=== PATIENT | female | born 1975 | race Hispanic/Latino ===

== ENCOUNTER 2023-02-18 14:20 | Emergency (ER) | payer SELFPAY ==
[~2023-02-18] VITALS: Ht 167.6 cm; Wt 77.1 kg
[2023-02-18 14:40] VITALS: O2SAT 99
[2023-02-18] MEDS ORDERED: ONDANSETRON HCL INJ 2MG/ML 2ML 2 MG/ML VIAL IV STA (14:44)
[2023-02-18] MEDS ORDERED: Morphine 4mg INJECTION 4 MG/ML INJ IV PRN (14:45)
[2023-02-18 15:11] LABS: BASOPHILS % 0.7 % (0.0-1.0); EOSINOPHILS # (AUTO) 0.1 (0.0-0.4); EOSINOPHILS % 2.5 % (0.0-6.0); HEMATOCRIT 36.8 % (34.2-44.1); LYMPHOCYTES # (AUTO) 1.6 (1.0-3.2); LYMPHOCYTES % 27.7 % (18.0-39.1); MEAN CORPUSCULAR HEMOGLOBIN 28.6 pg (28-32); MEAN CORPUSCULAR HGB CONC 32.6 g/dL (31-35); MEAN CORPUSCULAR VOLUME 87.6 fL (81-99); MONOCYTES # (AUTO) 0.5 (0.2-0.8); MONOCYTES % 9.3 % (4.4-11.3); NEUTROPHILS # (AUTO) 3.4 (2.1-6.9); NEUTROPHILS % 59.4 % (38.7-80.0); PLATELET COUNT 312 x10e3/uL (140-360); RED CELL DISTRIBUTION WIDTH 14.3 % (11.7-14.4)
[2023-02-18 15:23] LABS: CLARITY,URINE SL CLOUDY (CLEAR); COLOR,URINE AMBER (YELLOW); KETONES,URINE NEGATIVE (NEGATIVE); LEUKOCYTE ESTERASE ,URINE NEGATIVE (NEGATIVE); NITRITE,URINE POSITIVE (NEGATIVE); PROTEIN,URINE DIPSTICK 1+ (NEGATIVE); URINE UROBILINOGEN 0.2 mg/dL (0.2 - 1)
[2023-02-18 15:25] LABS: ALBUMIN 3.8 g/dL (3.5-5.0); ALBUMIN/GLOBULIN RATIO 1.2 (0.8-2.0); ANION GAP 11.4 mmol/L (8-16); CALCIUM 8.8 mg/dL (8.4-10.2); CREATININE, SERUM 0.87 mg/dL (0.57-1.11); POTASSIUM 3.4 mmol/L (3.5-5.1)
[2023-02-18 15:37] LABS: BACTERIA,URINE MANY /HPF; EPITHELIAL CELLS,URINE MODERATE /LPF
[2023-02-18 15:40] LABS: LIPASE 29 U/L (8-78)
[2023-02-18] MEDS ORDERED: IOPAMIDOL 370 MG/ML 100 ML INFUS..BTL INJ ONE (16:03)
[2023-02-18] MEDS ORDERED: CEFDINIR300 MG PO (16:46)
[2023-02-18] MEDS ORDERED: DICYCLOMINE HCL20 MG PO (16:46)
[2023-02-18] MEDS ORDERED: PEPCID20 MG PO (16:46)
[2023-02-18] MEDS ORDERED: ONDANSETRON ODT4 MG PO (16:46)
== END 2023-02-18 17:03 | disposition home or self-care (01) ==
LOC: ER 14:25
DX: R10.31 Right lower quadrant pain (principal); N12 Tubulo-interstitial nephritis, not specified as acute or chronic; K29.70 Gastritis, unspecified, without bleeding; R11.2 Nausea with vomiting, unspecified; R94.31 Abnormal electrocardiogram [ECG] [EKG]
CPT/HCPCS: 36415; 74177; 80053; 81001; 83690; 84484; 84702; 85025; 93005; 99284; J2270; J2405; Q9967

== ENCOUNTER 2023-02-21 00:17 | Emergency (ER) | payer SELFPAY ==
[~2023-02-21] VITALS: Ht 167.6 cm; Wt 77.1 kg
[~2023-02-21 00:17] MED LIST: CEFDINIR300 MG PO; DICYCLOMINE HCL20 MG PO; ONDANSETRON ODT4 MG PO; PEPCID20 MG PO
[2023-02-21] MEDS ORDERED: ONDANSETRON HCL 4 MG ORAL DISINTEGRATING TAB PO STA (00:32)
[2023-02-21] MEDS ORDERED: KETOROLAC TROMETHAMINE 60 MG/2 ML VIAL IM ONE (00:45)
[2023-02-21 00:59] LABS: CLARITY,URINE CLOUDY (CLEAR); COLOR,URINE YELLOW (YELLOW); LEUKOCYTE ESTERASE ,URINE NEGATIVE (NEGATIVE); NITRITE,URINE NEGATIVE (NEGATIVE)
[2023-02-21 01:00] LABS: KETONES,URINE NEGATIVE (NEGATIVE); PROTEIN,URINE DIPSTICK TRACE (NEGATIVE); URINE UROBILINOGEN 0.2 mg/dL (0.2 - 1)
[2023-02-21 01:13] LABS: BACTERIA,URINE MANY /HPF; EPITHELIAL CELLS,URINE MANY /LPF; MUCUS,URINE MANY (RARE); RENAL EPITHELIAL CELLS,URINE FEW; TRANSITIONAL EPI CELLS,URINE FEW; WBC,URINE (MAN) >50 /HPF (0-5)
[2023-02-21] MEDS ORDERED: CIPRO500 MG PO (04:05)
[2023-02-21] MEDS ORDERED: KETOROLAC TROME10 MG PO (04:05)
[2023-02-21 04:19] VITALS: BP 105/74; O2SAT 98
== END 2023-02-21 04:21 | disposition home or self-care (01) ==
LOC: ER 00:27
DX: R10.31 Right lower quadrant pain (principal); R82.71 Bacteriuria; R11.2 Nausea with vomiting, unspecified
CPT/HCPCS: 74176; 81001; 81025; 99284; J1885; Q0162

== ENCOUNTER 2024-07-11 18:08 | Emergency (ER) | payer OTHER ==
[~2024-07-11] VITALS: Ht 167.6 cm; Wt 83.3 kg
[~2024-07-11 18:08] MED LIST changes: +CIPRO500 MG PO; +KETOROLAC TROME10 MG PO; +ONDANSETRON ODT4 MG SL; +PANTOPRAZOLE SO40 MG PO
[2024-07-11 18:17] VITALS: PULSE 93; RESP 18; TEMP 98.4
[2024-07-11] MEDS ORDERED: PROVERA10 MG PO (18:39)
[2024-07-11 20:20] VITALS: BP 134/79; PULSE 81; RESP 18; TEMP 98.1; O2SAT 98
== END 2024-07-11 20:22 | disposition home or self-care (01) ==
LOC: FSED 18:16
DX: N93.8 Other specified abnormal uterine and vaginal bleeding (principal); K21.9 Gastro-esophageal reflux disease without esophagitis
CPT/HCPCS: 80053; 81025; 85025; 99283

== ENCOUNTER 2024-07-24 22:08 | Emergency (ER) | payer OTHER ==
[~2024-07-24] VITALS: Ht 167.6 cm; Wt 83.0 kg
[~2024-07-24 22:08] MED LIST changes: +PROVERA10 MG PO
[2024-07-24] MEDS: TRAMADOL HCL 50 MG TAB PO ONE (23:11)
[2024-07-24] MEDS ORDERED: ONDANSETRON HCL 4 MG ORAL DISINTEGRATING TAB ONE (23:14)
[2024-07-24 23:45] VITALS: PULSE 69; RESP 18; TEMP 98.6
[2024-07-25] MEDS: ONDANSETRON HCL 4 MG ORAL DISINTEGRATING TAB PO ONE (00:26)
[2024-07-25] MEDS: KETOROLAC TROMETHAMINE 30 MG/ML VIAL IM STA (02:46)
[2024-07-25] MEDS ORDERED: KETOROLAC TROME10 MG PO (03:14)
[2024-07-25] MEDS ORDERED: FAMOTIDINE20 MG PO (03:15)
[2024-07-25] MEDS ORDERED: PREDNISONE20 MG PO (03:16)
[2024-07-25] MEDS ORDERED: CYCLOBENZAPRINE5 MG PO (03:16)
[2024-07-25 04:11] VITALS: BP 141/74; PULSE 73; RESP 16; TEMP 98.3; O2SAT 98
== END 2024-07-25 03:45 | disposition home or self-care (01) ==
LOC: FSED 22:19
DX: M79.601 Pain in right arm (principal); S46.811A Strain of other muscles, fascia and tendons at shoulder and upper arm level, right arm, initial encounter; M79.2 Neuralgia and neuritis, unspecified; R94.31 Abnormal electrocardiogram [ECG] [EKG]
CPT/HCPCS: 71046; 72125; 73030; 84484; 93005; 93971; 99284; J1885; Q0162

== ENCOUNTER 2024-12-05 18:02 | Inpatient (IN) | payer OTHER ==
[~2024-12-05] VITALS: Ht 167.6 cm; Wt 79.8 kg
[~2024-12-05 18:02] MED LIST changes: +CYCLOBENZAPRINE5 MG PO; +FAMOTIDINE20 MG PO; +PREDNISONE20 MG PO
[2024-12-05] MEDS: ONDANSETRON HCL INJ 2MG/ML 2ML 2 MG/ML VIAL IV STA (19:28)
[2024-12-05] MEDS: Morphine 4mg INJECTION 4 MG/ML INJ IV ONE (19:28)
[2024-12-05] MEDS: KETOROLAC TROMETHAMINE 30 MG/ML VIAL IV STA (21:52)
[2024-12-05 21:53] VITALS: PULSE 80; RESP 20; TEMP 98
[2024-12-05 23:10] VITALS: BP 125/71; PULSE 76; RESP 18; TEMP 98.3; O2SAT 100
[2024-12-05] MEDS: ONDANSETRON HCL INJ 2MG/ML 2ML 2 MG/ML VIAL IV PRN (23:41)
[2024-12-05] MEDS: Morphine 4mg INJECTION 4 MG/ML INJ IV PRN (23:41)
[2024-12-06] VITALS (8 sets, daily range): BP systolic 120–143; BP diastolic 68–97; PULSE 62–72; RESP 16–18; TEMP 97.7–98.7; O2SAT 98–100
[2024-12-06] MEDS ORDERED: LIDOCAINE 4% PATCH TP PRN (00:45)
[2024-12-06] MEDS ORDERED: MELATONIN 5 MG TABLET PO PRN (00:45)
[2024-12-06] MEDS ORDERED: HYDRALAZINE HCL 20 MG/ML VIAL IV PRN (00:45)
[2024-12-06] MEDS ORDERED: DOCUSATE SODIUM 100 MG CAP PO PRN (00:45)
[2024-12-06] MEDS ORDERED: POTASSIUM CHLORIDE 20 MEQ TAB CR PO PRN (00:45)
[2024-12-06] MEDS ORDERED: ALBUTEROL/IPRATROPIUM 3 ML NEB NEB PRN (00:45)
[2024-12-06] MEDS ORDERED: DEXTROSE 50% SYRINGE 50 ML IV PRN (00:45)
[2024-12-06] MEDS ORDERED: BENZONATATE 100 MG CAP PO PRN (00:45)
[2024-12-06] MEDS ORDERED: DIPHENHYDRAMINE HCL 25 MG CAP PO PRN (00:45)
[2024-12-06] MEDS ORDERED: ACETAMINOPHEN 325 MG TAB PO PRN (00:45)
[2024-12-06] MEDS ORDERED: SIMETHICONE 80 MG CHEW PO PRN (00:45)
[2024-12-06] MEDS: SODIUM CHLORIDE 0.9% 1000ML 1,000 ML IV SCH (05:31)
[2024-12-06] MEDS: ONDANSETRON HCL INJ 2MG/ML 2ML 2 MG/ML VIAL IV PRN (06:20)
[2024-12-06] MEDS: PANTOPRAZOLE SOD 40 MG TABEC PO SCH (07:30)
[2024-12-06 09:27] LABS: BASOPHILS # (AUTO) 0.1 (0.0-0.1); BASOPHILS % 0.6 % (0.0-1.0); EOSINOPHILS # (AUTO) 0.1 (0.0-0.4); HEMATOCRIT 35.2 % (34.2-44.1); HEMOGLOBIN 11.7 g/dL (12.0-16.0); LYMPHOCYTES # (AUTO) 1.3 (1.0-3.2); LYMPHOCYTES % 14.6 % (18.0-39.1); MEAN CORPUSCULAR HEMOGLOBIN 28.4 pg (28-32); MEAN CORPUSCULAR HGB CONC 33.2 g/dL (31-35); MEAN CORPUSCULAR VOLUME 85.4 fL (81-99); MONOCYTES # (AUTO) 0.8 (0.2-0.8); MONOCYTES % 8.9 % (4.4-11.3); NEUTROPHILS # (AUTO) 6.8 (2.1-6.9); NEUTROPHILS % 74.7 % (38.7-80.0); PLATELET COUNT 300 x10e3/uL (140-360); RED BLOOD COUNT 4.12 x10e6/uL (3.6-5.1); WHITE BLOOD COUNT 9.08 x10e3/uL (4.8-10.8)
[2024-12-06 09:42] LABS: ALBUMIN 3.5 g/dL (3.5-5.0); BILIRUBIN,DIRECT 0.5 mg/dL (0.0-0.5); BILIRUBIN,TOTAL 1.1 mg/dL (0.2-1.2); TOTAL PROTEIN 6.9 g/dL (6.5-8.1)
[2024-12-06 10:27] LABS: CLARITY,URINE HAZY (CLEAR); COLOR,URINE YELLOW (YELLOW); GLUCOSE, URINE NEGATIVE (NEGATIVE); LEUKOCYTE ESTERASE ,URINE NEGATIVE (NEGATIVE); NITRITE,URINE NEGATIVE (NEGATIVE); PH,URINE 6 (5 - 7); PROTEIN,URINE DIPSTICK TRACE (NEGATIVE)
[2024-12-06 10:28] LABS: BILIRUBIN,URINE NEGATIVE (NEGATIVE); KETONES,URINE NEGATIVE (NEGATIVE); URINE UROBILINOGEN 0.2 mg/dL (0.2 - 1)
[2024-12-06 10:30] LABS: BACTERIA,URINE FEW /HPF; EPITHELIAL CELLS,URINE FEW /LPF
[2024-12-06] MEDS: DEXTROSE 5%/0.9% SOD CHL 1,000 ML IV SCH (16:22)
[2024-12-06] MEDS: ENOXAPARIN SOD INJ 40 MG/0.4 ML SYR SC SCH (16:23)
[2024-12-07 04:00] VITALS: BP 126/68; PULSE 66; RESP 18; TEMP 97.9; O2SAT 98
[2024-12-07 09:00] VITALS: BP 126/68; PULSE 66; RESP 18; TEMP 97.9; O2SAT 98
[2024-12-07 09:31] VITALS: BP 131/82; PULSE 61; RESP 16; TEMP 97.9; O2SAT 98
[2024-12-07] MEDS: KETOROLAC TROMETHAMINE 30 MG/ML VIAL IV PRN (11:22)
[2024-12-07 12:28] VITALS: BP 128/78; PULSE 60; RESP 18; TEMP 98; O2SAT 100
== END 2024-12-07 12:58 | disposition other institution (70) | DRG 446 ==
LOC: FSED 18:07 → MED/SURG 21:08
PROVIDERS: ADMIT Internal Medicine; ATTEND Internal Medicine
DX: K82.8 Other specified diseases of gallbladder (principal); R07.81 Pleurodynia; Z79.52 Long term (current) use of systemic steroids; Z90.710 Acquired absence of both cervix and uterus; Z87.730 Personal history of (corrected) cleft lip and palate
CPT/HCPCS: 36415; 74176; 76705; 80053; 80076; 81001; 81003; 83690; 85025; 87086; 94799; 96374; 96375; 99284; J1650; J1885; J2270; J2405; J2470; J2543; J7030; J7042

== ENCOUNTER 2025-04-08 21:23 | Emergency (ER) | payer OTHER ==
[~2025-04-08] VITALS: Ht 167.6 cm; Wt 81.2 kg
[2025-04-08 21:23] VITALS: PULSE 103; RESP 18; TEMP 98.4
[2025-04-08] MEDS: ALBUTEROL/IPRATROPIUM 3 ML NEB NEB ONE (21:59)
[2025-04-08] MEDS ORDERED: VENTOLIN HFA18 GM INH (22:51)
[2025-04-08] MEDS ORDERED: AZITHROMYCIN250 MG PO (22:51)
[2025-04-08 22:54] VITALS: BP 124/74; PULSE 96; RESP 18; TEMP 98.4; O2SAT 99
== END 2025-04-08 22:58 | disposition home or self-care (01) ==
LOC: FSED 21:30
DX: J06.9 Acute upper respiratory infection, unspecified (principal); D64.9 Anemia, unspecified; R05.9 Cough, unspecified; R07.9 Chest pain, unspecified; R06.02 Shortness of breath; R50.9 Fever, unspecified; Z86.16 Personal history of COVID-19; Z11.52 Encounter for screening for COVID-19
CPT/HCPCS: 0223U; 71046; 80053; 80307; 81003; 81025; 83518; 84484; 85025; 85379; 87400; 93005; 99283

== ENCOUNTER 2025-04-10 16:32 | Inpatient (IN) | payer OTHER ==
[~2025-04-10] VITALS: Ht 167.6 cm; Wt 80.8 kg
[~2025-04-10 16:32] MED LIST changes: +AZITHROMYCIN250 MG PO; +VENTOLIN HFA18 GM INH
[2025-04-10] MEDS ORDERED: IOPAMIDOL 370 MG/ML 100 ML INFUS..BTL INJ ONE (17:30)
[2025-04-10] MEDS ORDERED: SODIUM CHLORIDE 0.9% 100 ML ONE (17:30)
[2025-04-10] MEDS: ONDANSETRON HCL INJ 2MG/ML 2ML 2 MG/ML VIAL IV STA (17:53)
[2025-04-10] MEDS: ACETAMINOPHEN 325 MG TAB PO ONE (17:54)
[2025-04-10] MEDS: SODIUM CHLORIDE 0.9% 1000ML 1,000 ML IV ONE (17:54)
[2025-04-10 19:37] VITALS: PULSE 98; RESP 18
[2025-04-10] MEDS ORDERED: ONDANSETRON HCL INJ 2MG/ML 2ML 2 MG/ML VIAL IV PRN (21:00)
[2025-04-10 21:20] VITALS: BP 138/77; PULSE 100; RESP 21; TEMP 98.8; O2SAT 100
[2025-04-10 21:43] VITALS: BP 138/77; PULSE 100; RESP 21; TEMP 98.8; O2SAT 100
[2025-04-10] MEDS: SODIUM CHLORIDE 0.9% 1000ML 1,000 ML IV SCH (23:01)
[2025-04-11] VITALS (12 sets, daily range): BP systolic 124–143; BP diastolic 75–90; PULSE 85–104; RESP 16–21; TEMP 98–100.2; O2SAT 96–100
[2025-04-11] MEDS: ALBUTEROL SULF 0.083% NEB SOLN 3 ML NEB NEB SCH (03:45)
[2025-04-11] MEDS: IPRATROPIUM BROMIDE 0.02% 2.5 ML NEB NEB SCH (06:00)
[2025-04-11 08:20] LABS: BASOPHILS % 0.6 % (0.0-1.0); EOSINOPHILS % 4.6 % (0.0-6.0); LYMPHOCYTES % 22.1 % (18.0-39.1); MONOCYTES % 11.1 % (4.4-11.3); NEUTROPHILS % 61.1 % (38.7-80.0); RED CELL DISTRIBUTION WIDTH 15.9 % (11.7-14.4)
[2025-04-11 08:46] LABS: EST GLOMERULAR FILTRATION RATE 103.0 ML/MIN (>=60)
[2025-04-11] MEDS: DICYCLOMINE HCL 10 MG CAP PO SCH (10:01)
[2025-04-11] MEDS: ACETAMINOPHEN 325 MG TAB PO PRN (10:23)
[2025-04-11] MEDS: BENZONATATE 100 MG CAP PO PRN (22:44)
[2025-04-12] VITALS (15 sets, daily range): BP systolic 125–149; BP diastolic 78–89; PULSE 80–110; RESP 16–21; TEMP 98.1–99.2; O2SAT 97–100
[2025-04-12] MEDS: IRON SUCROSE 100 MG in SODIUM CHLORIDE 0.9% 100 ML IV SCH (12:51)
[2025-04-12] MEDS: GUAIFENESIN/CODEINE 5 ML LIQD PO PRN (12:51)
[2025-04-12 14:10] LABS: % IRON SATURATION 4 % (15-50)
[2025-04-12] MEDS: GUAIFENESIN 600 MG TAB PO SCH (17:09)
[2025-04-13] VITALS (14 sets, daily range): BP systolic 116–136; BP diastolic 63–91; PULSE 81–104; RESP 18–20; TEMP 97.5–98.6; O2SAT 94–100
[2025-04-13 05:23] LABS: BASOPHILS % 0.7 % (0.0-1.0); EOSINOPHILS % 8.6 % (0.0-6.0); LYMPHOCYTES % 27.0 % (18.0-39.1); MONOCYTES % 9.4 % (4.4-11.3); NEUTROPHILS % 53.0 % (38.7-80.0); RED CELL DISTRIBUTION WIDTH 16.2 % (11.7-14.4)
[2025-04-13 06:21] LABS: EST GLOMERULAR FILTRATION RATE 107.0 ML/MIN (>=60)
[2025-04-13] MEDS ORDERED: ACETAMINOPHEN 325 MG TAB PO PRN (07:45)
[2025-04-13] MEDS: DIPHENHYDRAMINE HCL 25 MG CAP PO ONE (11:34)
[2025-04-13] MEDS: SODIUM CHLORIDE 0.9% 250ML 250 ML IV ONE ×2 (11:34→17:07)
[2025-04-13] MEDS ORDERED: IOPAMIDOL 370 MG/ML 100 ML INFUS..BTL INJ ONE (12:38)
[2025-04-13] MEDS: FUROSEMIDE INJ 10 MG/ML 2 ML VIAL IV PRN (13:50)
[2025-04-13] MEDS: IRON SUCROSE 100 MG in SODIUM CHLORIDE 0.9% 100 ML IV SCH (22:24)
[2025-04-14 00:29] VITALS: PULSE 89; RESP 18; O2SAT 99
[2025-04-14 04:12] VITALS: PULSE 88; RESP 18; O2SAT 98
[2025-04-14 05:52] LABS: BASOPHILS % 0.7 % (0.0-1.0); EOSINOPHILS % 9.2 % (0.0-6.0); LYMPHOCYTES % 27.3 % (18.0-39.1); MONOCYTES % 8.7 % (4.4-11.3); NEUTROPHILS % 52.0 % (38.7-80.0); RED CELL DISTRIBUTION WIDTH 18.7 % (11.7-14.4)
[2025-04-14 06:15] LABS: EST GLOMERULAR FILTRATION RATE 94.0 ML/MIN (>=60)
[2025-04-14 08:00] VITALS: BP 146/93; PULSE 86; RESP 18; TEMP 97.7; O2SAT 97
[2025-04-14] MEDS: POTASSIUM CHLORIDE 10MEQ EA PO ONE (09:28)
[2025-04-14 09:47] VITALS: BP 146/93; PULSE 86; RESP 18; TEMP 97.7; O2SAT 97
== END 2025-04-14 10:35 | disposition home or self-care (01) | DRG 194 ==
LOC: FSED 16:37 → ERHOLD 19:46 → MED/SURG 21:20
PROVIDERS: ADMIT Internal Medicine; ATTEND Internal Medicine
PROC: 30233N1 Transfusion of Nonautologous Red Blood Cells into Peripheral Vein, Percutaneous Approach (ICD-10-PCS; principal; 2025-04-13)
DX: J18.9 Pneumonia, unspecified organism (principal); D62 Acute posthemorrhagic anemia; N93.9 Abnormal uterine and vaginal bleeding, unspecified; K76.0 Fatty (change of) liver, not elsewhere classified; Z79.52 Long term (current) use of systemic steroids; Z87.738 Personal history of other specified (corrected) congenital malformations of digestive system
CPT/HCPCS: 36415; 71046; 71260; 74177; 80048; 80053; 82550; 82607; 82746; 82948; 83540; 83880; 84466; 84484; 85014; 85018; 85025; 85045; 85379; 86850; 86900; 86920; 87040; 87070; 87205; 87400; 94640; 94799; 99284; J0696; J1756; J1938; J2405; J7030; J7050; P9016; Q9967

== ENCOUNTER 2025-04-28 10:27 | Emergency (ER) | payer OTHER ==
[~2025-04-28] VITALS: Ht 167.6 cm; Wt 81.2 kg
[2025-04-28] MEDS ORDERED: IOPAMIDOL 370 MG/ML 100 ML INFUS..BTL INJ ONE (11:25)
[2025-04-28] MEDS: ALBUTEROL/IPRATROPIUM 3 ML NEB NEB ONE (11:28)
[2025-04-28] MEDS: ONDANSETRON HCL INJ 2MG/ML 2ML 2 MG/ML VIAL IV STA (12:07)
[2025-04-28] MEDS ORDERED: BENZONATATE100 MG PO (12:38)
[2025-04-28 13:07] VITALS: PULSE 94; RESP 20; TEMP 97.8
[2025-04-28 13:09] VITALS: BP 145/75; PULSE 94; RESP 20; O2SAT 100
== END 2025-04-28 13:00 | disposition home or self-care (01) ==
LOC: FSED 10:42
DX: R06.02 Shortness of breath (principal); R05.9 Cough, unspecified
CPT/HCPCS: 71260; 80053; 84484; 85025; 85379; 93005; 99283; J2405; Q9967